=== PATIENT | female | born 1975 | race African-American/Black ===

== ENCOUNTER 2016-08-06 05:29 | Emergency (ER) | payer OTHER ==
[~2016-08-06] VITALS: Ht 190.5 cm; Wt 88.0 kg
[2016-08-06] MEDS ORDERED: CYCLOBENZAPRINE10 MG ORAL (05:38)
[2016-08-06] MEDS ORDERED: Norco 5mg/325mg tab ORAL ONE (05:45)
[2016-08-06 05:50] VITALS: BP 114/75
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
[2016-08-06] MEDS ORDERED: HYDROCODON-ACE1 EA15 ORAL (06:07)
[2016-08-06 07:10] VITALS: BP 119/77
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
== END 2016-08-06 07:13 | disposition home or self-care (01) ==
LOC: EMR 05:45
DX: S62.306A Unspecified fracture of fifth metacarpal bone, right hand, initial encounter for closed fracture (principal); X58.XXXA Exposure to other specified factors, initial encounter; Y92.89 Other specified places as the place of occurrence of the external cause
CPT/HCPCS: 29125; 99283